=== PATIENT | female | born 1965 | race Caucasian/White ===

== ENCOUNTER → 2017-05-01 | Day surgery (SDC) | payer BC ==
[2017-04-30 08:42] VITALS: Ht 167.6 cm; Wt 147.7 kg
[~2017-05-01] VITALS: Ht 167.6 cm; Wt 147.7 kg
[~2017-05-01] MED LIST: ALBUAER19 INH; GLYCOPYRROLATE INJ 0.2 MG/ML VIAL ONE; KETAMINE HCL INJ 50 MG/ML 10 ML VIAL ONE; LEVO200T6 PO; LEVO25TA5 PO; LIDOCAINE HCL 2% 2 ML VIAL (20MG/ML) ONE; MIDAZOLAM HCL 1 MG/ML 2ML VIAL ONE; PROPOFOL IV EMULSION 10 MG/ML 20 ML VIAL IV ONE; SODIUM CHLORIDE 0.9% 500ML 500 ML IV ONE
--- NOTE | 2017-05-01 09:19 | Endo History and Physical ---
History & Physical Date of Service: May 01, 2017. Chief Complaint: Screening Referring Physician: Padmaja Hernandez History of Present Illness Average risk screening, history of breast cancer Past Medical History Endocrine Disorder, Cancer, Depression Past Surgical History Hx Cardiac Surgery: No Hx Internal Defibrillator: No Hx Pacemaker: No Hx Abdominal Surgery: Yes (CSECTION) Hx Post-Op Nausea and Vomiting: Yes Hx Cancer Surgery: Yes (RIGHT BREAST MASTECTOMY, THYROIDECTOMY) Hx Thoracic Surgery: No Hx Orthopedic: Yes (REMOVAL GANGLION CYST RIGHT FOOT) Hx Urinary Tract Surgery: No Family History None Social History Smoking Status: Former Smoker Hx Substance Use: No Hx Alcohol Use: Yes (Occasionally ) Allergies Coded Allergies: No Known Allergies (Verified , 05/01/17) Current Medications Reported Home Medications Medications Dose Route/Sig Max Daily Dose Days Date Category Dose Instructions Ventolin Inhaler (Albuterol) Aers 2 Puffs INH Q4 PRN 11/03/14 Reported Levothyroxine Sodium 200 Mcg Tab 200 Mcg PO QAM 11/03/14 Reported TAKES 25 & 200 Levothyroxine Sodium 25 Mcg Tab 25 Mcg PO QAM 11/03/14 Reported TAKES 25 & 200 Vital Signs Weight (Kilograms): 147.73 Height (Feet): 5 Height (Inches): 6 Date Time Temp Pulse Resp B/P (MAP) Pulse Ox O2 Delivery O2 Flow Rate FiO2 05/01/17 08:44 36.5 92 18 147/100 (116) 98 Room Air Physical Exam General Appearance: WD/WN, no apparent distress, + obese Respiratory/Chest: Auscultation: breath sounds normal, no wheezing Cardiovascular: Heart Auscultation: RRR, no murmurs Abdomen: Inspection & Palpation: soft, no tenderness, guarding & rebound Assessment and Plan Colonoscopy today.
--- NOTE | 2017-05-01 10:01 | GI REPORT ---
Procedure Date: 05/01/2017 9:18 AM Procedure: Colonoscopy Indications: Screening for colorectal malignant neoplasm Medicines: Monitored Anesthesia Care Complications: No immediate complications. Estimated blood loss: None. Estimated Blood Loss: Estimated blood loss: none. Procedure: Pre-Anesthesia Assessment: - Prior to the procedure, a History and Physical was performed, and patient medications, allergies and sensitivities were reviewed. The patient's tolerance of previous anesthesia was reviewed. - ASA Grade Assessment: III - A patient with severe systemic disease. After I obtained informed consent, the scope was passed under direct vision. Throughout the procedure, the patient's blood pressure, pulse, and oxygen saturations were monitored continuously. The Scope was introduced through the anus and advanced to the terminal ileum, with identification of the appendiceal orifice and IC valve. The colonoscopy was performed without difficulty. The patient tolerated the procedure well. The quality of the bowel preparation was excellent. The bowel preparation used was split dose MIralax. Findings: A 3 mm polyp was found in the descending colon. The polyp was sessile. The polyp was removed with a cold snare. Resection and retrieval were complete. A 1 mm polyp was found in the sigmoid colon. The polyp was sessile. The polyp was removed with a cold snare. Resection and retrieval were complete. Verification of patient identification for the specimens was done by the physician and nurse using the patient's name, date and medical record number. Impression: - One 3 mm polyp in the descending colon, removed with a cold snare. Resected and retrieved. - One 1 mm polyp in the sigmoid colon, removed with a cold snare. Resected and retrieved. - The colon was otherwise normal to the terminal ileum with retroflexed views of the colon and terminal ileum. Recommendation: - Repeat colonoscopy in 5-10 years for surveillance based on pathology results. - Discharge patient to home (with escort). Hai Pacheco M.D. Hai Pacheco MD 05/01/2017 10:00:40 AM This report has been signed electronically. Note Initiated On: 05/01/2017 9:18 AM I attest to the content of the Intraoperative Record and orders documented therein, exceptions below
--- NOTE | 2017-05-01 10:01 | Discharge Instructions ---
Endoscopy Patient Instructions Date / Procedure(s) Performed May 01, 2017. Colonoscopy Allergy Information Coded Allergies: No Known Allergies (Verified , 05/01/17) Discharge Date / Findings May 01, 2017. Two small colon polyps. Medication Instructions Restart Stopped Medication(s): Restart all medications today. Provider Instructions Activity Restrictions - No exercising or heavy lifting for 24 hours. - Do not drink alcohol the day of the procedure. - Do not drive a car or operate machinery until the day after the procedure. - Do not make any important decisions or sign important papers in 24 hours after the procedure. Following Day: - Return to full activity which may include returning to work/school. Diet Start your diet with liquids and light foods (jello, soup, juice, toast). Then eat your usual diet if not nauseated. Treatment For Common After Affects For mild abdominal pain, bloating, or excessive gas: - Rest - Eat lightly - Lie on right side Follow-Up Information Follow-up with Padmaja Hernandez as scheduled Anesthesia Information What You Should Know You have had a procedure that required some medicine to reduce anxiety and discomfort. This treatment is called moderate sedation. After receiving the treatment, you may be sleepy, but you will be able to breathe on your own. The effects of the treatment may last for several hours. Follow these instructions along with Activity/Diet recommendations noted above: * Do NOT do anything where dizziness or clumsiness would be dangerous. * Rest quietly at home today, then you can be up and about tomorrow. * Have a responsible person stay with you the rest of today. * You may have had an I.V. today. If so, you may take the dressing off later today. Recommendations Call your doctor if: * Trouble breathing * Continuous vomiting for more than 24 hours * Temperature above 101 degrees * Severe abdominal pain or bloating * Pain not relieved by pain medicine ordered * There is increased drainage or redness from any incision * A large amount of rectal bleeding greater than 2-3 tablespoons. (If you had a polyp/s removed or have hemorrhoids, a small amount of blood - from the rectum is to be expected.) * You have any unanswered questions or concerns. IN THE EVENT OF A SERIOUS EMERGENCY, GO TO THE NEAREST EMERGENCY ROOM Your discharge instructions were prepared by provider Hai Pacheco. Patient Instructions Signature Page Gypsy Menjivar Patient (or Guardian) Signature/Date: I have read and understand the instructions given to me by my caregivers. Caregiver/RN/Doctor Signature/Date: The above-named patient and/or guardian has received patient instructions on this date. + Original Patient Signature Page (only) stays with chart. Please make copy for patient.
--- NOTE | 2017-05-01 10:10 | Anesthesiology Progress Note ---
Anesthesia Post Op Note Date & Time May 01, 2017 at 10:09 Vital Signs Pain Intensity: 0 Vital Signs Past 12 Hours Date Time Temp Pulse Resp B/P (MAP) Pulse Ox O2 Delivery O2 Flow Rate FiO2 05/01/17 10:03 90 18 114/76 (89) 98 Room Air 05/01/17 08:44 36.5 92 18 147/100 (116) 98 Room Air Notes Mental Status: alert / awake / arousable, participated in evaluation Pt Amnestic to Procedure: Yes Nausea / Vomiting: adequately controlled Pain: adequately controlled Airway Patency, RR, SpO2: stable & adequate BP & HR: stable & adequate Hydration State: stable & adequate Anesthetic Complications: no major complications apparent
[2017-05-01 10:27] VITALS: BP 101/72; PULSE 87; O2SAT 98
== END | disposition home or self-care (01) ==
LOC: C.GI 08:02
PROVIDERS: ATTEND Internal Medicine Gastroenterology
DX: Z12.11 Encounter for screening for malignant neoplasm of colon (principal); D12.4 Benign neoplasm of descending colon; D12.5 Benign neoplasm of sigmoid colon; E34.9 Endocrine disorder, unspecified; F32.9 Major depressive disorder, single episode, unspecified; Z79.899 Other long term (current) drug therapy

== ENCOUNTER → 2018-06-05 | Outpatient (CLI) | payer OTHER ==
[~2018-06-05] MED LIST changes: -GLYCOPYRROLATE INJ 0.2 MG/ML VIAL ONE; -KETAMINE HCL INJ 50 MG/ML 10 ML VIAL ONE; -LIDOCAINE HCL 2% 2 ML VIAL (20MG/ML) ONE; -MIDAZOLAM HCL 1 MG/ML 2ML VIAL ONE; -PROPOFOL IV EMULSION 10 MG/ML 20 ML VIAL IV ONE; -SODIUM CHLORIDE 0.9% 500ML 500 ML IV ONE
== END | disposition home or self-care (01) ==
LOC: C.PAPS 09:26
PROVIDERS: ATTEND Obstetrics & Gynecology
DX: Z12.4 Encounter for screening for malignant neoplasm of cervix (principal)